=== PATIENT | male | born 1985 | race Two or more races ===

== ENCOUNTER → 2018-10-20 | Outpatient (CLI) | payer OTHER ==
[~2018-10-20] MED LIST: VASOTEC20 M1
== END | disposition home or self-care (01) ==
LOC: SONOGRAMA 11:14
DX: K40.90 Unilateral inguinal hernia, without obstruction or gangrene, not specified as recurrent (principal); S76.012A Strain of muscle, fascia and tendon of left hip, initial encounter

== ENCOUNTER → 2019-01-02 | Emergency (ER) | payer OTHER ==
[~2019-01-02] VITALS: Ht 172.7 cm; Wt 90.7 kg
== END | disposition left against medical advice (07) ==
LOC: ER 23:22
DX: Z53.20 Procedure and treatment not carried out because of patient's decision for unspecified reasons (principal)

== ENCOUNTER 2019-02-28 18:06 | Emergency (ER) | payer OTHER ==
[~2019-02-28] VITALS: Ht 172.7 cm; Wt 90.7 kg
== END 2019-02-28 22:25 | disposition home or self-care (01) ==
LOC: ER 18:06
DX: R19.7 Diarrhea, unspecified (principal)

== ENCOUNTER 2019-11-23 21:24 | Day surgery (SDC) | payer OTHER ==
[~2019-11-23] VITALS: Ht 165.1 cm; Wt 160.0 kg
[2019-11-25] MEDS ORDERED: AMOX1TAB5 PO (12:00)
[2019-11-25] MEDS ORDERED: PROTONIX40 MG PO (12:02)
== END 2019-11-25 08:00 | disposition home or self-care (01) ==
LOC: ER 21:24 → CIR.AMB 11-24 00:24 → ER 11-24 00:27 → O/R 11-24 00:27 → SURG 11-24 00:27 → O/R 11-24 06:49 → EDSTATUS 11-24 07:00 → CIR.AMB 11-25 08:00 → O/R 11-25 12:10 → SURG 11-25 12:10
PROVIDERS: ATTEND Surgery
DX: K35.80 Unspecified acute appendicitis (principal); I10 Essential (primary) hypertension; K66.0 Peritoneal adhesions (postprocedural) (postinfection)